=== PATIENT | female | born 1965 | race Caucasian/White ===

== ENCOUNTER 2017-07-22 07:40 | Emergency (ER) | payer SELFPAY ==
[2017-07-22] MEDS ORDERED: Pantoprazole 40 MG VIAL ONE (08:11)
[2017-07-22] MEDS ORDERED: Ketorolac Tromethamine 30 MG/ML VIAL ONE (08:11)
[2017-07-22] MEDS ORDERED: Ondansetron HCl/PF 4 MG/2 ML Vial ONE ×2 (08:11)
[2017-07-22 08:21] LABS: #Basophils 0.1 thou/uL (0.0-0.2); #Eosinphils 0.1 thou/uL (0.0-0.7); #Lymphocytes 1.3 thou/uL (1.20-3.40); #Monocytes 0.4 thou/uL (0.11-0.59); #Neutrophils 4.1 thou/uL (1.40-6.50); %Basophils 1.1 % (0.0-1.0); %Eosinophils 1.5 % (0.0-10.0); %Lymphocytes 21.9 % (21.0-51.0); %Monocytes 6.5 % (0.0-10.0); %Neutrophils 69.1 % (42.0-75.0); Hemoglobin 13.3 g/dL (12.0-16.0); Mean Corpuscular HGB CONC 32.4 g/dL (32.0-36.0); Mean Corpuscular Hemoglobin 33.9 pg (27.0-31.0); Mean Corpuscular Volume 104.5 fl (81.0-99.0); Mean Platelet Volume 6.8 fL (7.4-10.4); Platelet Count 236 thou/uL (130-400); RBC Distribution Width 13.5 % (11.5-14.5); Red Blood Cell (RBC) Count 3.93 mill/uL (4.20-5.40)
[2017-07-22 08:38] LABS: ALT (SGPT) 25 U/L (8-55); AST (SGOT) 36 U/L (5-34); Albumin 3.5 g/dL (3.5-5.0); Alkaline Phosphatase 74 U/L (40-150); Anion Gap 15 mmol/L (10-20); BUN (Urea Nitrogen) 11 mg/dL (9.8-20.1); Bilirubin, Total 0.4 mg/dL (0.2-1.2); Calc. Creatinine Clearance 0 mL/min (70-130); Calcium 8.9 mg/dL (7.8-10.44); Carbon Dioxide 28 mmol/L (22-29); Chloride 106 mmol/L (98-107); Estimated GFR-MDRD 90; Globulin 3.3 g/dL (2.4-3.5); Glucose 121 mg/dL (70-105); Lipase 11 U/L (8-78); Potassium 4.5 mmol/L (3.5-5.1); Protein, Total 6.8 g/dL (6.0-8.3); Sodium 144 mmol/L (136-145)
[2017-07-22 08:39] LABS: CKMB 0.9 ng/mL (0-6.6); Troponin I Less than 0.010 ng/mL (< 0.028)
[2017-07-22 09:22] LABS: Bilirubin Negative (Negative); Blood, Urine Small (Negative); Clarity Clear (Clear); Glucose, Urine (Dipstick) Negative (Negative); Leukocyte Negative (Negative); Nitrite Positive (Negative); Protein, Urine (Dipstick) Negative (Neg-Trace); Urobilinogen 0.2 mg/dL (0.2-1.0)
[2017-07-22 09:29] LABS: Bacteria/HPF Rare-Few HPF (None Seen); Squamous Epithelial 0-3 HPF (0-3)
[2017-07-22 09:30] LABS: Pregnancy Test - Urine (BHCG) Negative (Negative)
[2017-07-22 09:31] LABS: Pregu Control Background? CLEAR/WHITE (CLR/WHITE); Pregu Control Bar Appear? YES (CONTROL BAR)
--- NOTE | 2017-07-22 11:13 | RAD ---
AP VIEW CHEST SUPINE AND UPRIGHT VIEWS OF ABDOMEN: Date: 07/22/17 HISTORY: Nausea and vomiting. FINDINGS: AP view of chest obtained. The lungs are well aerated. No evidence of active intrathoracic disease is seen. No evidence of effusions, pneumonia, or pneumothorax seen. Two views of the abdomen demonstrate the abdominal gas pattern to be nonspecific. No evidence of mariann l obstruction or ileus seen. No evidence of free intraperitoneal air seen. No dilated loops of bowel seen. IMPRESSION: Unremarkable AP view of chest and 2 views abdomen. POS: [facility]
== END 2017-07-22 10:00 | disposition home or self-care (01) ==
LOC: MADERS 07:40
DX: T62.8X1A Toxic effect of other specified noxious substances eaten as food, accidental (unintentional), initial encounter (principal); R11.2 Nausea with vomiting, unspecified; M16.11 Unilateral primary osteoarthritis, right hip; F41.9 Anxiety disorder, unspecified; F32.9 Major depressive disorder, single episode, unspecified; F20.9 Schizophrenia, unspecified; F43.10 Post-traumatic stress disorder, unspecified; Z87.891 Personal history of nicotine dependence; Z79.891 Long term (current) use of opiate analgesic; Z79.899 Other long term (current) drug therapy
CPT/HCPCS: 36415; 74022; 80053; 81003; 81015; 81025; 82553; 83690; 84484; 85025; 93005; 96361; 96374; 96375; C9113; J1885; J2405